=== PATIENT | male | born 1955 | race Caucasian/White ===

== ENCOUNTER 2017-04-01 16:38 | Emergency (ER) | payer OTHER ==
[~2017-04-01] VITALS: Ht 170.2 cm; Wt 59.1 kg
[2017-04-01 16:57] LABS: GLUCOSE,POINT OF CARE 137 MG/DL (70-110)
[2017-04-01] MEDS ORDERED: SENN1TAB72 PO (17:28)
[2017-04-01] MEDS ORDERED: LISI-660 PO (17:28)
[2017-04-01] MEDS ORDERED: METR500 PO (17:28)
[2017-04-01] MEDS ORDERED: INSLAN SQ (17:28)
[2017-04-01] MEDS ORDERED: INSU100C14 SQ (17:28)
[2017-04-01] MEDS ORDERED: MULT-1272 PO (17:28)
[2017-04-01] MEDS ORDERED: ENOX40DI9 SQ (17:28)
[2017-04-01] MEDS ORDERED: SACC250C3 PO (17:28)
[2017-04-01 22:00] VITALS: BP 163/95
== END 2017-04-01 22:10 | disposition short-term general hospital (02) ==
LOC: EMS 16:40
DX: L03.115 Cellulitis of right lower limb (principal); E11.9 Type 2 diabetes mellitus without complications; I10 Essential (primary) hypertension; Z79.4 Long term (current) use of insulin
CPT/HCPCS: 82962; 99285